=== PATIENT | female | born 1975 | race Caucasian/White ===

== ENCOUNTER 2022-03-30 14:38 | Outpatient (CLI) | payer OTHER, SELFPAY ==
[2022-03-30 19:26] LABS: Free T4 Free Thyroxine* 0.96 ng/dL (0.70-1.85)
== END 2022-03-30 14:39 | disposition home or self-care (01) ==
LOC: NFLDREF 14:39
PROVIDERS: PCP Family Medicine; Visit Provider Obstetrics & Gynecology
DX: Z01.419 Encounter for gynecological examination (general) (routine) without abnormal findings (principal); E03.9 Hypothyroidism, unspecified
CPT/HCPCS: 84439; 84443

== ENCOUNTER 2022-04-27 06:51 | Outpatient (CLI) | payer OTHER, SELFPAY ==
--- NOTE | 2022-04-27 08:20 | W.ANESCHARGE ---
Anesthesia Charges Start Date/Time Anesthesia Start Date: 04/27/22 Anesthesia Start Time: 07:47 Stop Date/Time Anesthesia Stop Date: 04/27/22 Anesthesia Stop Time: 08:10 Summary Emergency: No
--- NOTE | 2022-04-27 09:20 | W.ANESCHARGE ---
Anesthesia Charges Start Date/Time Anesthesia Start Date: 04/27/22 Anesthesia Start Time: 07:47 Stop Date/Time Anesthesia Stop Date: 04/27/22 Anesthesia Stop Time: 08:10 Summary Emergency: No
== END 2022-04-27 06:52 | disposition home or self-care (01) ==
LOC: OP CLINIC 06:52
PROVIDERS: PCP Family Medicine; Visit Provider Internal Medicine
DX: Z12.11 Encounter for screening for malignant neoplasm of colon (principal); K63.5 Polyp of colon
CPT/HCPCS: 00811; 45380; 88305; J2704

== ENCOUNTER 2022-05-23 10:51 | Outpatient (CLI) | payer OTHER, SELFPAY | END 2022-05-23 10:52 | disposition home or self-care (01) | LOC: NFLDREF 11:00 | PROVIDERS: PCP Family Medicine; Visit Provider Obstetrics & Gynecology | DX: E03.9 Hypothyroidism, unspecified (principal) | CPT/HCPCS: 84443 ==

== ENCOUNTER 2023-05-24 07:44 | Outpatient (CLI) | payer OTHER, SELFPAY | END 2023-05-24 07:45 | disposition home or self-care (01) | LOC: NFLDREF 05-27 15:32 | PROVIDERS: PCP Family Medicine; Referring Provider Family Medicine; Visit Provider Physician Assistant | DX: Z13.6 Encounter for screening for cardiovascular disorders (principal); Z13.1 Encounter for screening for diabetes mellitus | CPT/HCPCS: 80061; 82947; 84443 ==

== ENCOUNTER 2024-05-05 10:28 | Outpatient (CLI) | payer OTHER, SELFPAY ==
--- NOTE | 2024-05-05 10:45 | CRLHL7_ITS ---
For Patients: As a result of the Century Cures Act, medical imaging exams and procedure reports are released immediately into your electronic medical record. You may view this report before your referring provider. If you have questions, please contact your health care provider. BILATERAL SCREENING MAMMOGRAM WITH COMPUTER-AIDED DETECTION AND TOMOSYNTHESIS TECHNIQUE: CC and MLO views were obtained. These mammographic images have been obtained using full-field digital technique. These mammographic images were interpreted with the benefit of computer-aided detection. Breast Tomosynthesis was used in this interpretation. COMPARISON FILM: 12/27/22, 11/11/20, 09/30/19. FINDINGS: There are scattered areas of fibroglandular density IMPRESSION: There is no radiographic evidence for malignancy. ASSESSMENT: BI-RADS Category 1: Negative RECOMMENDATION: Routine screening mammogram in 1 year. A lay language report of this examination will be provided to the patient. Ck Rubin M.D. Diagnostic Radiologist [email or web address] STEPHIE/Dictated by: Ck Rubin MD @ 05/13/2024 11:38:00 AM (Electronically Signed)
== END 2024-05-05 10:29 | disposition home or self-care (01) ==
LOC: MAMMO 10:29
PROVIDERS: PCP Family Medicine; Visit Provider Obstetrics & Gynecology
DX: Z12.31 Encounter for screening mammogram for malignant neoplasm of breast (principal)
CPT/HCPCS: 77063; 77067

== ENCOUNTER 2024-05-27 08:46 | Outpatient (CLI) | payer OTHER, SELFPAY | END 2024-05-27 08:47 | disposition home or self-care (01) | LOC: FRMREF 08:46 | PROVIDERS: PCP Family Medicine; Visit Provider Obstetrics & Gynecology | DX: Z01.419 Encounter for gynecological examination (general) (routine) without abnormal findings (principal); E03.9 Hypothyroidism, unspecified; N95.1 Menopausal and female climacteric states; F41.8 Other specified anxiety disorders | CPT/HCPCS: 84443 ==

== ENCOUNTER 2025-05-20 15:03 | Outpatient (CLI) | payer OTHER, SELFPAY ==
--- NOTE | 2025-05-20 15:20 | CRLHL7_ITS ---
For Patients: As a result of the Century Cures Act, medical imaging exams and procedure reports are released immediately into your electronic medical record. You may view this report before your referring provider. If you have questions, please contact your health care provider. INDICATION: BILATERAL SCREENING MAMMOGRAM, ASYMPTOMATIC 49 Y/O FEMALE COMPARISON: 05/05/2024, 12/27/2022, 11/11/2020 TECHNIQUE: Digital mammogram in CC and MLO projections including computer-aided detection (CAD) and tomosynthesis. BREAST COMPOSITION: There are scattered areas of fibroglandular density. FINDINGS: No suspicious findings. ASSESSMENT: BI-RADS 1 Negative RECOMMENDATION: Annual screening mammogram. A lay language report of this examination will be provided to the patient. Dictated by: Ck Rubin MD @ 05/21/2025 09:20:08 (Electronically Signed)
== END 2025-05-20 15:04 | disposition home or self-care (01) ==
LOC: MAMMO 15:04
PROVIDERS: PCP Family Medicine; Visit Provider Obstetrics & Gynecology
DX: Z12.31 Encounter for screening mammogram for malignant neoplasm of breast (principal)
CPT/HCPCS: 77063; 77067

== ENCOUNTER 2025-06-01 14:56 | Outpatient (CLI) | payer OTHER, SELFPAY | END 2025-06-01 14:57 | disposition home or self-care (01) | LOC: NFLDREF 14:56 | PROVIDERS: PCP Family Medicine; Visit Provider Physician Assistant | DX: E03.9 Hypothyroidism, unspecified (principal) | CPT/HCPCS: 84443 ==